=== PATIENT | male | born 1955 | race African-American/Black ===

== ENCOUNTER 2017-03-29 21:58 | Emergency (ER) | payer MEDICAID ==
[~2017-03-29] VITALS: Ht 165.1 cm; Wt 54.0 kg
[2017-03-29] MEDS ORDERED: SODIUM CHLORIDE 0.9% 1,000 ML IV ONE (22:31)
[2017-03-29] MEDS ORDERED: MORPHINE SULFATE 4 MG/ML CPJ (NOT FOR IM USE) IV STA (22:31)
[2017-03-29] MEDS ORDERED: ONDANSETRON HCL 4MG/2ML VIAL IV STA (22:31)
[2017-03-29 23:14] LABS: CHLORIDE 102 mEq/L (98-107); INDEX HEMOLYSI 1 (1-3); INDEX ICTERIC 1 (1-4); INDEX LIPEMIC 1 (1-3)
[2017-03-29 23:15] LABS: INR 1.1; PROTHROMBIN TIME 11.8 sec
[2017-03-29 23:23] LABS: ALANINE AMINOTRANSFERASE 17 IU/L (13-61); ALBUMIN 3.1 g/dL (3.4-5.0); ANION GAP 11; CARBON DIOXIDE 29 mEq/L (21-32); UREA NITROGEN BLOOD 16 mg/dL (7-21); eGFR > 60 mL/min (>60)
[2017-03-30 00:40] LABS: HEMATOCRIT. 29.4 % (42.0-52.0); HEMOGLOBIN. 9.2 g/dL (14.0-18.0); MEAN CORPUSCULAR HGB CONC 31.4 g/dL (31.0-37.0); MEAN CORPUSCULAR VOLUME 76.3 fL (80.0-94.0); MEAN PLATELET VOLUME 7.4 fl (7.4-10.4); RED BLOOD CELL COUNT 3.85 mill/uL (4.7-6.1); RED CELL DISTRIBUTION WIDTH 20.8 % (11.6-14.6); WHITE BLOOD COUNT 12.4 x1000/uL (4.5-11.0)
[2017-03-30 00:42] LABS: DIFFERENTIAL COMMENT 1
[2017-03-30 05:11] VITALS: BP 107/54
[2017-03-30] MEDS ORDERED: KETOROLAC 15MG/ML VIAL IV ONE (05:15)
[2017-03-30 07:53] LABS: ANISOCYTOSIS 2+; PLATELET ESTIMATE MARKEDLY INCREASED
[2017-03-30 07:57] LABS: PLATELET 1259 x1000/uL (130-400)
== END 2017-03-30 05:34 | disposition home or self-care (01) ==
LOC: ER 21:59
DX: R51 Headache (principal); R10.9 Unspecified abdominal pain; R11.10 Vomiting, unspecified; Z85.818 Personal history of malignant neoplasm of other sites of lip, oral cavity, and pharynx
CPT/HCPCS: 36415; 70450; 71010; 80053; 83605; 85025; 85610; 87040; 96361; 96374; 96375; 99285; C1893; J1885; J2270; J2405; J7030; Z7610